=== PATIENT | male | born 2005 | race Caucasian/White ===

== ENCOUNTER 2025-02-20 21:44 | Inpatient (IN) | payer OTHER ==
[2025-02-20] MEDS ORDERED: Sodium Chloride 0.9% 10 ML Syringe FLUSH PRN (22:49)
[2025-02-20 23:29] LABS: BASOPHILS ABSOLUTE AUTO 0.1 K/mm3 (0.0-0.2); BASOPHILS PERCENT AUTO 0.4 % (0.0-1.0); EOSINOPHILS ABSOLUTE AUTO 0.3 K/mm3 (0.0-0.4); EOSINOPHILS PERCENT AUTO 1.7 % (0.0-6.0); IMMATURE GRAN ABSOLUTE AUTO 0.07 K/mm3 (0.00-0.05); IMMATURE GRAN PERCENT AUTO 0.5 % (0.0-0.4); LYMPHOCYTES ABSOLUTE AUTO 4.6 K/mm3 (1.0-4.8); LYMPHOCYTES PERCENT AUTO 31.5 % (24.0-44.0); MEAN PLATELET VOLUME 10.0 fl (9.4-12.4); MONOCYTES ABSOLUTE AUTO 0.9 K/mm3 (0.0-0.8); MONOCYTES PERCENT AUTO 6.4 % (0.0-8.0); NEUTROPHILS ABSOLUTE AUTO 8.6 K/mm3 (1.8-7.7); NEUTROPHILS PERCENT AUTO 59.5 % (41.0-71.0); NRBC ABSOLUTE 0.00 (0.00-0.02); NRBC PERCENT 0.0 % (0.0-0.2); PLATELET COUNT,PLT 258 K/mm3 (150-400); RED BLOOD CELL COUNT 5.28 M/mm3 (4.52-5.90); WHITE BLOOD CELL COUNT,WBC 14.46 K/mm3 (3.9-11.3)
[2025-02-20] MEDS: Iopamidol 612 MG/ML 100 ML Bottle IVPUSH ONE (23:52)
[2025-02-21 01:18] LABS: LACTIC ACID 0.7 mmol/L (0.4-2.0)
[2025-02-21 01:25] LABS: A/G RATIO 0.9 (1-2); ALANINE AMINOTRANSFERASE,ALT 32.0 U/L (16-63); ASPARTATE AMNIOTRANSFERASE,AST 12.0 U/L (15-37); BILIRUBIN TOTAL 0.4 mg/dL (0.2-1.0); BLOOD UREA NITROGEN,BUN 14.0 mg/dL (7-18); CARBON DIOXIDE,CO2 28.0 mEq/L (21-32); CHLORIDE,CL 102.0 mEq/L (98-107); CREATININE 1.0 mg/dL (0.7-1.3); EST CRCL DRUG DOSING (CG) 124.45 mL/min; ESTIMATED GFR 110.0 mL/min (>60); GLUCOSE RANDOM 121.0 mg/dL (70-99); POTASSIUM,K 4.1 mEq/L (3.5-5.1); PROTEIN TOTAL,TP 7.2 g/dl (6.4-8.2); SODIUM,NA 138.0 mEq/L (136-145)
[2025-02-21] MEDS ORDERED: Ondansetron 4 MG/2 ML SDV IV PRN (08:37)
[2025-02-21] MEDS ORDERED: Ondansetron 4 MG Tab.DIS PO PRN (08:37)
[2025-02-22 07:38] LABS: BASOPHILS ABSOLUTE AUTO 0.0 K/mm3 (0.0-0.2); BASOPHILS PERCENT AUTO 0.4 % (0.0-1.0); EOSINOPHILS ABSOLUTE AUTO 0.2 K/mm3 (0.0-0.4); EOSINOPHILS PERCENT AUTO 2.5 % (0.0-6.0); IMMATURE GRAN ABSOLUTE AUTO 0.05 K/mm3 (0.00-0.05); IMMATURE GRAN PERCENT AUTO 0.5 % (0.0-0.4); LYMPHOCYTES ABSOLUTE AUTO 2.6 K/mm3 (1.0-4.8); LYMPHOCYTES PERCENT AUTO 28.6 % (24.0-44.0); MEAN PLATELET VOLUME 9.4 fl (9.4-12.4); MONOCYTES ABSOLUTE AUTO 0.7 K/mm3 (0.0-0.8); MONOCYTES PERCENT AUTO 7.0 % (0.0-8.0); NEUTROPHILS ABSOLUTE AUTO 5.6 K/mm3 (1.8-7.7); NEUTROPHILS PERCENT AUTO 61.0 % (41.0-71.0); NRBC ABSOLUTE 0.00 (0.00-0.02); NRBC PERCENT 0.0 % (0.0-0.2); PLATELET COUNT,PLT 370 K/mm3 (150-400); RED BLOOD CELL COUNT 5.33 M/mm3 (4.52-5.90); WHITE BLOOD CELL COUNT,WBC 9.24 K/mm3 (3.9-11.3)
[2025-02-22 08:00] LABS: A/G RATIO 0.8 (1-2); ALANINE AMINOTRANSFERASE,ALT 85.0 U/L (16-63); ASPARTATE AMNIOTRANSFERASE,AST 34.0 U/L (15-37); BILIRUBIN TOTAL 0.4 mg/dL (0.2-1.0); BLOOD UREA NITROGEN,BUN 13.0 mg/dL (7-18); CARBON DIOXIDE,CO2 28.0 mEq/L (21-32); CHLORIDE,CL 101.0 mEq/L (98-107); CREATININE 0.8 mg/dL (0.7-1.3); EST CRCL DRUG DOSING (CG) 155.57 mL/min; ESTIMATED GFR 129.0 mL/min (>60); GLUCOSE RANDOM 101.0 mg/dL (70-99); POTASSIUM,K 4.0 mEq/L (3.5-5.1); PROTEIN TOTAL,TP 7.7 g/dl (6.4-8.2); SODIUM,NA 136.0 mEq/L (136-145)
== END 2025-02-22 15:14 | disposition home or self-care (01) | DRG 603 ==
LOC: JD.ED 21:44 → JD.MS 02-21 07:52
PROVIDERS: ADMIT Student in an Organized Health Care Education/Training Program; ATTEND Student in an Organized Health Care Education/Training Program
DX: L03.115 Cellulitis of right lower limb (principal); S92.321A Displaced fracture of second metatarsal bone, right foot, initial encounter for closed fracture
CPT/HCPCS: 36415; 73701-26-RT; 73701-RT; 80053; 83036; 83605; 85025; 85027; 85652; 86140; 87040; 87081; 97161-GP; 97530-GP; 99283; A9270-GY; J2543; J7030; Q9967